=== PATIENT | male | born 1990 | race Caucasian/White ===

== ENCOUNTER 2025-09-24 12:31 | Emergency (ER) | payer OTHER ==
[~2025-09-24] VITALS: Ht 175.3 cm; Wt 84.1 kg
[2025-09-24 13:36] LABS: BASO # 0.1 10^3/uL (0.0-0.2); BASO % 1.2 % (0.0-1.0); EOS # 0.8 10^3/uL (0.0-0.5); EOS % 9.9 % (0.0-3.0); LYMPH # 1.4 10^3/uL (1.5-5.0); LYMPH % 17.1 % (24.0-44.0); MONO # 0.7 10^3/uL (0.0-0.8); MONO % 8.1 % (2.0-8.0); NEUTROPHILS # 5.2 10^3/uL (1.5-8.5); NEUTROPHILS % 63.1 % (36.0-66.0); PLATELET COUNT, AUTOMATED 248 10^3/uL (150-450)
[2025-09-24 14:04] LABS: ALT/SGPT 34 U/L (7.0-40); AST/SGOT 23 U/L (<34); CALCIUM LEVEL 8.8 MG/DL (8.5-10.1); CARBON DIOXIDE LEVEL 31 MMOL/L (20-31); CHLORIDE LEVEL 105 MMOL/L (98-107); CREATININE FOR GFR 0.84 MG/DL (0.70-1.30); GLOMERULAR FILTRATION RATE > 90.0 (>60); POTASSIUM SERUM 4.2 MMOL/L (3.5-5.1); SODIUM LEVEL 143 MMOL/L (136-145)
[2025-09-24 15:59] LABS: KETONE, URINE AUTO RFX NEGATIVE (NEGATIVE); LEUKOCYTE ESTERASE UR AUTO RFX NEGATIVE (NEGATIVE); NITRITE, URINE AUTO RFX NEGATIVE (NEGATIVE); RBC, URINE AUTO RFX 1 /HPF (0-3); SQUAM EPITHELIAL CELL UR AURFX 0 /HPF (0-6); WBC, URINE AUTO RFX 0 /HPF (0-3)
[2025-09-24] MEDS ORDERED: ISOVUE-370 76% 100 ML VIAL As Ordered ONE (17:02)
[2025-09-24 18:56] VITALS: BP 134/74; TEMP 98.3; O2SAT 100
== END 2025-09-24 19:18 | disposition home or self-care (01) ==
LOC: M ED 12:31 → EDBD 12:31 → M ED 19:18
DX: K62.5 Hemorrhage of anus and rectum (principal); K42.9 Umbilical hernia without obstruction or gangrene; F17.290 Nicotine dependence, other tobacco product, uncomplicated
CPT/HCPCS: 36415; 74174; 80048; 80076; 81001; 83690; 85025; 87507; 99284; Q9967